=== PATIENT | male | born 1990 | race Two or more races ===

== ENCOUNTER 2017-10-06 11:47 | Emergency (ER) | payer MEDICAID ==
[~2017-10-06] VITALS: Ht 165.1 cm; Wt 74.8 kg
[2017-10-06 12:07] VITALS: BP 117/67
== END 2017-10-06 14:30 | disposition home or self-care (01) ==
LOC: ER 11:47
DX: S40.021A Contusion of right upper arm, initial encounter (principal); X50.0XXA Overexertion from strenuous movement or load, initial encounter; Y93.89 Activity, other specified; Y99.8 Other external cause status; Y92.89 Other specified places as the place of occurrence of the external cause